=== PATIENT | male | born 1965 | race Caucasian/White ===

== ENCOUNTER 2018-07-30 15:30 | Emergency (ER) | payer SELFPAY ==
[~2018-07-30] VITALS: Ht 190.5 cm; Wt 84.0 kg
[2018-07-30] MEDS ORDERED: BACITRACIN ZINC OINT UDPKT TOP ONE (16:15)
[2018-07-30] MEDS ORDERED: HYDROCODONE/ACETAMINOPHEN 5/325MG TABLET PO ONE (16:15)
[2018-07-30] MEDS ORDERED: TETANUS, DIPHTHERIA, PERTUSSIS VAC/PF 0.5ML (>7YR OLD) IM ONE (16:15)
[2018-07-30 17:15] VITALS: BP 149/91
== END 2018-07-30 17:17 | disposition home or self-care (01) ==
LOC: ER 15:30 → EDBD 15:30 → ER 17:17
DX: S61.212A Laceration without foreign body of right middle finger without damage to nail, initial encounter (principal); S61.011A Laceration without foreign body of right thumb without damage to nail, initial encounter; S61.214A Laceration without foreign body of right ring finger without damage to nail, initial encounter; W26.8XXA Contact with other sharp object(s), not elsewhere classified, initial encounter; Y93.89 Activity, other specified; Y92.018 Other place in single-family (private) house as the place of occurrence of the external cause
CPT/HCPCS: 12004; 90471; 90715; 99283; A4217; Z7610